=== PATIENT | female | born 1975 | race Two or more races ===

== ENCOUNTER 2017-10-24 14:04 | Emergency (ER) | payer OTHER ==
[2017-10-24] MEDS ORDERED: HYDROcod/ACETAM 5/325 MG TABLET PO STA (14:48)
--- NOTE | 2017-10-24 14:52 | ED Physician Documentation ---
History of Present Illness - Stated complaint Stated Complaint: FEMALE - Chief complaint Chief Complaint: General - History obtained from History obtained from: Patient - History of Present Illness Timing: Other (42-year-old healthy woman has had a painful lump in the vagina since yesterday and she has pressure there and has some difficulty urinating. There is a slight possibility of .) Review of Systems Constitutional: denies: Fever, Chills GI: reports: Reviewed and negative : denies: Dysuria, Frequency, Hesitancy Skin: reports: Reviewed and negative Musculoskeletal: reports: Reviewed and negative PD PAST MEDICAL HISTORY - Past Medical History Cardiovascular: None Respiratory: None Neuro: None Endocrine/Autoimmune: None GI: None IDEA MAN: None : None HEENT: None Psych: None Musculoskeletal: None Derm: None - Past Surgical History Past Surgical History: No - Present Medications Home Medications: Ambulatory Orders Medication Instructions Recorded Confirmed Ciprofloxacin HCl [Cipro] 500 mg PO BID #6 tablet 08/08/15 Phenazopyridine [Pyridium] 100 mg PO Q8H PRN #9 tablet 08/08/15 Oxycodone HCl/Acetaminophen 1 - 2 tab PO Q4H PRN #15 tablet 10/24/17 [Percocet 5-325 mg Tablet] - Allergies Allergies/Adverse Reactions: Allergies Allergy/AdvReac Type Severity Reaction Status Date / Time Sulfa (Sulfonamide AdvReac Hives Verified 08/08/15 06:31 Antibiotics) - Social History Does the pt smoke?: Yes Smoking Status: Current every day smoker Does the pt drink ETOH?: Yes Does the pt have substance abuse?: No - Immunizations Immunizations are current?: Yes - POLST Patient has POLST: No PD ED PE NORMAL - Vitals Vital signs reviewed: Yes - General General: Alert and oriented X 3, No acute distress - Female 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), Other (She has a 2 cm mass just posterior to the urethra which I think is probably a urethral diverticulum, it is quite tender.) - Neuro Neuro: Alert and oriented X 3, Normal speech Results - Vitals Vitals: Vital Signs - 24 hr 10/24/17 14:24 Temperature 36.7 C Heart Rate 94 Respiratory 18 Rate Blood Pressure 137/70 H O2 Saturation 99 Oxygen O2 Source Room air - Labs Labs: Laboratory Tests 10/24/17 14:52 Urine Color YELLOW Urine Clarity CLEAR Urine pH 7.0 Ur Specific Horse[place] 1.025 Urine Protein NEGATIVE Urine Glucose (UA) NEGATIVE Urine Ketones NEGATIVE Urine Occult Blood NEGATIVE Urine Nitrite NEGATIVE Urine Bilirubin NEGATIVE Urine Urobilinogen 0.2 (NORMAL) Ur Leukocyte Esterase NEGATIVE Ur Microscopic Review NOT INDICATED Urine Culture Comments NOT INDICATED Urine HCG, Qual NEGATIVE PD MEDICAL DECISION MAKING - ED course ED course: 42-year-old woman with what I think is probably a urethral diverticulum acute, Dr. Joanie Stubbs the on-call manager market will come in and see her. We spoke by phone at 2:50 PM. She saw her and agrees with the dx and recommends xfer for definitive treatment. Spoke with Dr Cruz at [facility] who says this is outsider her practice and would need to be seen at [facility]. But she did not feel acutely. I spoke with Dr. Peña, the urologist on-call at the [facility] also felt she did not need to come down urgently recommended to follow-up in the urogynecology clinic. The referral was sent to the [facility] they will contact her for scheduling. Departure - Departure Disposition: 01 Home, Self Care Clinical Impression: Urethral diverticulum Condition: Stable Record reviewed to determine appropriate education?: Yes Prescriptions: Oxycodone HCl/Acetaminophen [Percocet 5-325 mg Tablet] 1 - 2 tab PO Q4H PRN #15 tablet PRN Reason: Pain Comments: The urogynecology clinic in the [facility] should be contacting you early next week for scheduling. Return if worse or if new symptoms develop. If you do not hear from them, their phone number is [phone]. Do not drink or drive while taking narcotic pain medication. Note that many narcotic pain relievers also contain Tylenol/acetaminophen. Please ensure that your total dose of acetaminophen from all sources does not exceed 3 g (3000 mg) per day. You may get constipated while on this medication. Take a stool softener such as Colace twice a day while you are on it. Also add an ebco-azn-wgmnano laxative such as senna or MiraLAX on any day that you do not have a bowel movement. If you received a narcotic pain medication or sedative while in the emergency department, do not drive for the next 24 hours. Your blood pressure was elevated today on check into the emergency department. This does not mean that you have hypertension, it is a common phenomenon to come to the emergency department and have elevated blood pressure. I recommend that you see your primary care physician within the week to have it rechecked when you are feeling better.
[2017-10-24 15:03] LABS: BILIRUBIN,URINE NEGATIVE (NEGATIVE); GLUCOSE, URINE (UA) NEGATIVE (NEGATIVE); KETONES,URINE (UA) NEGATIVE (NEGATIVE); LEUKOCYTE ESTERASE, URINE NEGATIVE (NEGATIVE); NITRITE,URINE NEGATIVE (NEGATIVE); OCCULT BLOOD,URINE NEGATIVE (NEGATIVE); PROTEIN,URINE NEGATIVE (NEGATIVE); UROBILINOGEN,URINE 0.2 (NORMAL) E.U./dL (NORMAL)
[2017-10-24 15:11] LABS: CLARITY,URINE CLEAR (CLEAR)
[2017-10-24 15:21] LABS: HCG UR QUAL NEGATIVE
--- NOTE | 2017-10-24 16:48 | CONSULTATION NOTE ---
History - Past Medical History Cardiovascular: reports: None Respiratory: reports: None Neuro: reports: None Endocrine/Autoimmune: reports: None GI: reports: None TOE FORMER: reports: None : reports: None HEENT: reports: None Psych: reports: None Musculoskeletal: reports: None Derm: reports: None MRSA Hx?: No - POLST Patient has POLST: No Meds/Allgy - Home Medications Home Medications: Ambulatory Orders Medication Instructions Recorded Confirmed Ciprofloxacin HCl [Cipro] 500 mg PO BID #6 tablet 08/08/15 Phenazopyridine [Pyridium] 100 mg PO Q8H PRN #9 tablet 08/08/15 - Allergies Allergies/Adverse Reactions: Allergies Allergy/AdvReac Type Severity Reaction Status Date / Time Sulfa (Sulfonamide AdvReac Hives Verified 08/08/15 06:31 Antibiotics) Exam - Vital Signs Vital Signs: Vital Signs x48h Temp Pulse Resp BP Pulse Ox 10/24/17 14:24 98.1 F 94 18 137/70 H 99 Conclusion/Plan - Diagnosis Diagnosis: Infected urethral diverticulum - Plan Plan: Transfer to urology for definitive care - Other Other Results/Comments: 42 yo Infected urethral diverticulum Transfer care to urology Consult Dictated: Two notes dictated; first dictation was cut off. 2nd dictation : [id number]
[2017-10-24 17:22] VITALS: BP 120/69
--- NOTE | 2017-10-24 18:05 | CONSULTATION NOTE ---
DATE OF SERVICE: 10/24/2017 Physician: Joanie Stubbs DO IDENTIFICATION: This is a 42-year-old G6, P3-0-3-2. LMP approximately 3 weeks ago. HISTORY OF PRESENT ILLNESS: I was consulted by ER physician, Dr. Candelario Bejarano, to see the patient here in the emergency department. She is a very pleasant lady who states she has been having her symptoms for the last 48 hours. The patient recalls that yesterday when she woke up, she went to the bathroom and felt like there was a blockage in her vaginal opening. She felt pressure and like something was pushing down in her vaginal area. She was able to urinate and denied any issues with defecation. The patient described what was a nodule or mass when she examined herself. This is the first time this has happened. This area is extremely painful, and she rates this at 8/10. The patient also cannot sit because of the pain. The patient is currently very anxious. Unfortunately, she has had a very difficult life in which her 3-1/2-year-old son unfortunately in the hospital. Last evening, her 12-year-old son was acting very strangely after his baseball practice. The patient was here last night with her 12-year-old son and a negative workup was revealed. She is very anxious about being around hospitals, as are her children. PAST MEDICAL HISTORY: None. PAST SURGICAL HISTORY 1. 1988: Breast reduction at age 13. 2. 2008: Bilateral breast implants. 31982: Tonsils and adenoid removal. ALLERGIES: SULFA, IN WHICH SHE HAS HIVES. MEDICATIONS: None. Her pharmacy of choice is a [facility] in [place], [place]. SOCIAL HISTORY: She smokes 6-7 cigarettes per day. She does consume alcohol on a social basis, and she does smoke marijuana. She denies any other illicit drugs. 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 She has a partner, Phil, for the last 3-1/2 years. They are monogamous. The patient has 2 living children. Her son, age 12, and her daughter, age 10. Again, unfortunately, her youngest son at age 3-1/2. The patient also unfortunately is . Her in [place] during a tour. She still is receiving health care from the until she marries. The patient states that her father is as well as [place], and her mother is . PAST OBSTETRICAL HISTORY 1. One therapeutic . 2. Two spontaneous abortions. 3. Three term spontaneous vaginal deliveries. Her oldest son Kris was the largest at 6-3/4 pounds. She and her partner, Phil, do not use contraception and would love to get if possible. PAST GYNECOLOGICAL HISTORY: She has monthly menses and bleeds for 2 days. Menses may be heavy, and she does have some tolerable cramping. She denies any andrew dysmenorrhea. She denies any sexually transmitted diseases or abnormal Pap smears. FAMILY HISTORY: Mother had breast cancer at age 37. The patient is routinely doing self breast exams and has had 3 mammograms so far. REVIEW OF SYSTEMS: Negative unless otherwise stated. OBJECTIVE VITAL SIGNS: Temperature is 98.1, heart rate 94, blood pressure 137/70, respiratory rate 18, O2 saturation 99%. GENERAL: The patient is a well-developed, well-nourished, mixed-race female who is very intelligent and easy to speak to. She is very rational. HEENT: Within normal limits female. EXTERNAL GENITALIA: Within normal limits with the exception of a significant urethral diverticulum. This area is very tense and (This dictation was cut off. Please see the next consultation note for its completion.) TD: 10/24/2017 18:04 YANE
--- NOTE | 2017-10-24 18:33 | CONSULTATION NOTE ---
DATE OF SERVICE: 10/24/2017 Physician: Joanie Stubbs, DO CONTINUATION PHYSICAL EXAMINATION EXTERNAL GENITALIA: Within normal limits with the exception of a significant urethral diverticulum which is extremely tense, edematous and erythematous. It is extremely tender and is approximately 2 cm in width and extending down 4 cm inferiorly. LABORATORY RESULTS: Urinalysis with greater than 25 urine white blood cells. ASSESSMENT 1. A 42-year-old G6, P3-0-3-2. 2. Infected urethral diverticulum. PLAN 1. Discussed with Dr. Bejarano that the patient does indeed have a urethral diverticulum. Unfortunately, we do not have a urologist on staff here at [facility]. I strongly recommended to Dr. Bejarano that we transfer her to [facility] in [place], [place], which is the nearest hospital that does have a urologist on staff. They would be able to definitively treat the patient's infected urethral diverticulum. Dr. Bejarano was in agreement after I discussed my assessment and plan with him. 2. Thank you for allowing me to participate in this patient's care. TD: 10/24/2017 18:32 MTDD
== END 2017-10-24 17:38 | disposition home or self-care (01) ==
LOC: ED 14:04
DX: N36.1 Urethral diverticulum (principal); R03.0 Elevated blood-pressure reading, without diagnosis of hypertension; F17.200 Nicotine dependence, unspecified, uncomplicated
CPT/HCPCS: 81003; 81025; 99283; A9270; 81001; 87086

== ENCOUNTER 2018-12-29 09:22 | Emergency (ER) | payer OTHER ==
--- NOTE | 2018-12-29 09:30 | ED Physician Documentation ---
History of Present Illness - Stated complaint Stated Complaint: DEPRESSION/ANXIETY - Chief complaint Chief Complaint: MHE - History obtained from History obtained from: Patient - Additonal information Additional information: Patient is a 43-year-old female with history of depression and anxiety presenting with worsening symptoms of these processes over the past several weeks. Patient reports that she has previously been on antidepressant medication, but has not taken these medications for about 5 years. Patient also reports that she is an alcoholic and chronically uses alcohol, but is usually able to stop drinking without issue. Patient denies history of hallucinations, seizures, or hospitalizations when she stops drinking alcohol. Patient reports that her last drink was approximately 3 days ago. Patient did have some shakiness, nausea, vomiting, diarrhea, which have now resolved. Patient denies other complaints including homicidal thoughts, suicidal thoughts, or other self harming behavior. No hallucinations or paranoia. Patient has tried to obtain resources and has some appointments scheduled, but unfortunately they are not available for another month. No other improving or worsening factors noted. Review of Systems Psychiatric: reports: Depressed, Anxiety. denies: Suicidal, Homicidal PD PAST MEDICAL HISTORY - Past Medical History Cardiovascular: None Respiratory: None Endocrine/Autoimmune: None GI: None PRODUCTION LEAD: None : None HEENT: None Psych: Depression, Anxiety Musculoskeletal: None Derm: None - Past Surgical History Past Surgical History: No - Present Medications Home Medications: Ambulatory Orders Medication Instructions Recorded Confirmed No Known Home Medications 12/29/18 12/29/18 - Allergies Allergies/Adverse Reactions: Allergies Allergy/AdvReac Type Severity Reaction Status Date / Time Sulfa (Sulfonamide AdvReac Hives Verified 12/29/18 09:28 Antibiotics) - Social History Does the pt smoke?: Yes Smoking Status: Current every day smoker Does the pt drink ETOH?: Yes Does the pt have substance abuse?: No - Immunizations Immunizations are current?: Yes - POLST Patient has POLST: No PD ED PE NORMAL - Vitals Vital signs reviewed: Yes - General General: Alert and oriented X 3, Well developed/nourished, Other (Tearful, slightly anxious) - HEENT HEENT: Atraumatic, Moist mucous membranes - Cardiac Cardiac: RRR, No murmur - Respiratory Respiratory: No respiratory distress, Clear bilaterally - Abdomen Abdomen: Soft, Non tender, Non distended - Derm Derm: Normal color, Warm and dry, No rash - Extremities Extremities: No deformity, No tenderness to palpate - Neuro Neuro: Alert and oriented X 3, No motor deficit, No sensory deficit - Psych Psych: Normal mood (Tearful, slightly anxious), Normal affect Results - Vitals Vitals: Vital Signs - 24 hr 12/29/18 12/29/18 09:26 11:12 Temperature 36.7 C 37 C Heart Rate 103 H 72 Respiratory 18 16 Rate Blood Pressure 150/110 H 131/79 H O2 Saturation 100 98 Oxygen O2 Source Room air PD MEDICAL DECISION MAKING - ED course Complexity details: considered differential, d/w patient ED course: Patient presenting with acute on chronic anxiety and depression symptoms. Patient does admit to chronic alcohol use and has stopped without significant complication. Do not feel that she is suffering from acute withdrawal, intoxication, or other toxidrome at this time. Patient denies suicidal thoughts and does not appear to be responding to internal stimuli. Patient does not admit to paranoia or hallucinations. Do not feel patient requires invasive testing or work-up at this time, but consult social work. Social work had extensive discussions with patient and was able to set up several resources and provide additional resources. Feel that Patient is safe to discharge home.Patient voiced understanding of appropriate follow-up and return precautions. Patient did leave without her discharge paperwork. Departure - Departure Disposition: 01 Home, Self Care Clinical Impression: Anxiety Depression Qualifiers: Depression Type: unspecified Qualified Code(s): F32.9 - Major depressive disorder, single episode, unspecified Condition: Good Instructions: ED Depression, ED Panic Attack Follow-Up: your,doctor [Other] - Within 3 Days Comments: Please follow-up as scheduled with therapy appointments, as well as keep in contact with professor of social work regarding other resources and scheduling of further appointments. May follow-up with your primary care physician in next 1 to 2 days. Return to ED sooner if experience worsening symptoms of anxiety, depression, suicidal thoughts, homicidal thoughts, hallucinations, paranoia, or other concerns.
[2018-12-29] MEDS: NICOTINE 21 MG PATCH TOP STA (11:00)
[2018-12-29 11:18] VITALS: BP 131/79
== END 2018-12-29 12:45 | disposition home or self-care (01) ==
LOC: ED 09:22
DX: F41.9 Anxiety disorder, unspecified (principal); F32.9 Major depressive disorder, single episode, unspecified; F10.20 Alcohol dependence, uncomplicated; F17.200 Nicotine dependence, unspecified, uncomplicated
CPT/HCPCS: 99283